=== PATIENT | female | born 2000 | race Caucasian/White ===

== ENCOUNTER → 2023-04-24 | Outpatient (CLI) | payer BC ==
--- NOTE | 2023-04-24 12:48 | Diagnostic Imaging Report ---
PROCEDURE: Pelvic comp/transvaginal sonogram. TECHNIQUE: Complete transabdominal and transvaginal pelvic ultrasound was performed. In addition, limited pelvic Doppler was performed. INDICATION: Right lower quadrant pain. FINDINGS: The uterus measures 6.6 x 3.6 x 6.1 cm and is anteverted. Endometrium is 4 mm in thickness. An IUD is centered in the endometrial canal. No myometrial mass is detected. Right ovary measures 3.6 x 2.6 x 3.4 cm, and the left ovary measures 3.3 x 1.9 x 2.5 cm. There is a 14 mm cyst adjacent to the left ovary. The ovaries contain small follicles. There is blood flow to both ovaries. No adnexal mass or free pelvic fluid is identified. IMPRESSION: 1. The IUD is appropriately centered in the endometrial canal. 2. 14 mm left paraovarian cyst. Dictated by: Dictated on workstation # [id number]
== END ==
LOC: RAD 10:00
PROVIDERS: ATTEND Nurse Practitioner Family
DX: N83.202 Unspecified ovarian cyst, left side (principal); Z97.5 Presence of (intrauterine) contraceptive device
CPT/HCPCS: 76830; 76856